=== PATIENT | male | born 1975 | race Caucasian/White ===

== ENCOUNTER 2022-02-18 07:41 | Outpatient (CLI) | payer OTHER, SELFPAY ==
--- NOTE | ~2022-02-18 | XR_ITS ---
XR chest 2V 02/18/2022 08:13 Indication: Dyspnea Procedure: PA and lateral views of the chest Comparison: No prior studies for comparison. Findings: Borderline heart size. Mild interstitial edema. Small right pleural effusion. No pneumothor ax. No acute osseous abnormality. Impression: 1: Borderline heart size with mild interstitial edema. Pneumonia less favored. 2: Small right pleural effusion. Reviewed, dictated and finalized at location A. Impression: 1: Borderline heart size with mild interstitial edema. Pneumonia less favored. 2: Small right pleural effusion.
[2022-02-18 09:16] LABS: Basophils Absolute Auto 0.1 K/mm3 (0.0-0.1); Eosinophils Absolute Auto 0.4 K/mm3 (0-0.3); Eosinophils Percent Auto 5.2 % (0-4.4); Hematocrit 49.6 % (42.0-52.0); Immature Granulocyte Absolute 0.02 K/mm3 (0.00-0.031); Immature Granulocyte Percent A 0.3 % (0-0.5); Lymphocytes Absolute Auto 1.98 K/mm3 (0.9-3.2); Mean Corpuscular HGB Conc 30.2 g/dl (32-36); Mean Platelet Volume 9.4 fl (7.4-10.4); Monocytes Absolute Auto 0.6 K/mm3 (0.1-0.6); Monocytes Percent Auto 7.1 % (2.6-8.5); Neutrophils Absolute Auto 4.9 K/mm3 (1.3-6.7); Neutrophils Percent Auto 61.4 % (45.5-73.1); Platelet Count Result 302 k/mm3 (150-375); Red Blood Count 5.77 M/mm3 (4.6-6.20); Red Cell Distribution Width 16.3 % (11.5-14.5); White Blood Count 7.9 K/mm3 (4.5-10.0)
[2022-02-18 09:25] LABS: Hemoglobin A1C 5.9 % (<5.7)
[2022-02-18 09:28] LABS: Cholesterol 120 mg/dL (0-200); HDL Direct 21 mg/dL; Triglycerides 77 mg/dL (<150)
[2022-02-18 09:29] LABS: Alanine Aminotransferase 15 U/L (6-50); Alkaline Phosphatase 75 U/L (38-126); Anion Gap 5 mmol/L (8-16); Aspartate Amino Transferase 26 U/L (17-59); Bilirubin,Total 0.5 mg/dL (0.2-1.3); Blood Urea Nitrogen 13 mg/dL (9-20); Calcium 8.4 mg/dL (8.4-10.2); Carbon Dioxide 29 mmol/L (22-30); Chloride 105 mmol/L (98-107); Estimated Glomerular Filt Rate > 60; Glucose 110 mg/dL (65-110); Potassium 3.9 mmol/L (3.4-5.0); Sodium 139 mmol/L (137-145)
[2022-02-18 09:38] LABS: NT Pro B Type Natriuretic Pept 5140 pg/mL (5-100)
[2022-02-18 09:40] LABS: LDL Cholesterol Direct 79 mg/dL
[2022-02-18 09:46] LABS: Vitamin D 25 Hydroxy 16.8 ng/mL
== END 2022-02-18 07:42 | disposition home or self-care (01) ==
PROVIDERS: PCP Family Medicine; Visit Provider Family Medicine
DX: R06.00 Dyspnea, unspecified (principal); E55.9 Vitamin D deficiency, unspecified; Z13.220 Encounter for screening for lipoid disorders; R73.9 Hyperglycemia, unspecified; J90 Pleural effusion, not elsewhere classified; R60.9 Edema, unspecified
CPT/HCPCS: 36415; 71046; 80053; 80061; 82306; 83036; 83880; 85025

== ENCOUNTER 2022-08-06 07:36 | Outpatient (CLI) | payer OTHER, SELFPAY ==
--- NOTE | 2022-08-06 07:57 | ECHO_ITS ---
Patient Info Name: Leonides Montalvo Age: 47 years : 1975 Gender: Male Ht: 71 in Wt: 272 lbs BSA: 2.53 m2 HR: 109 bpm BP: 140 / 98 mmHg Heart Rhythm: Sinus Rhythm Technical Quality: Good Exam Date: 08/06/2022 8:03 AM Exam Location: [facility] Pulmonary Patient Status: Outpatient Admit Date: 08/06/2022 Staff Ordering Physician: Kina Enriquez DO Utility Bag Assembler: Christina Nolasco RDCS Attending Provider: Kina Enriquez DO Referring Physician: Mina FOY; Exam Type: CA echo doppler color flow Study Info Indications - sob Complete two-dimensional, color flow and Doppler transthoracic echocardiogram is performed. Summary 1. Complete two-dimensional, color flow and Doppler transthoracic echocardiogram is performed. 2. Normal left ventricular size and thickness. There is mild global hypokinesis with no focal wall motion abnormalities.. Ejection fraction is calculated to be 46% and visually is 45-50%. Grade 3 diastolic dysfunction is present. 3. The right ventricle is not well seen but the chamber appears moderately enlarged with moderate hypokinesis. 4. Right atrial chamber dimension is mildly enlarged. 5. Left atrial chamber dimension is severely enlarged. 6. The mitral valve leaflets are very heavily calcified suggestive of rheumatic mitral valve disease. There is moderate to severe mitral regurgitation. There is no significant mitral stenosis. 7. There is moderate tricuspid valve regurgitation. 8. Severe pulmonary hypertension, estimated pulmonary arterial systolic pressure is 64 mmHg. 9. Normal sinus rhythm. Left Ventricle Left ventricular chamber dimension is normal. Left ventricular systolic function is mildly reduced, estimated at 45-50%. There is no increased left ventricular wall thickness. Left ventricular septal wall motion is normal. The left ventricular diastolic function is grade III diastolic dysfunction. Global longitudinal strain is severely elevated at -11 %. Right Ventricle The right ventricle is not well seen but the chamber appears moderately enlarged with moderate hypokinesis. Right ventricular systolic function is reduced. Left Atria Left atrial chamber dimension is severely enlarged. Right Atria Right atrial chamber dimension is mildly enlarged. Aortic Valve The aortic valve is trileaflet. There is mild aortic valve sclerosis. There is no aortic valve stenosis. There is no aortic valve regurgitation. Pulmonic Valve The pulmonic valve is normal. There is no pulmonic valve stenosis. There is no pulmonic regurgitation. Mitral Valve The mitral valve has calcified leaflets, restricted anterior leaflet motion and restricted posterior leaflet motion. There is no mitral valve stenosis. There is moderate to severe mitral valve regurgitation. There is moderate mitral valve calcification. The mitral valve annulus is mildly calcified. Tricuspid Valve The tricuspid valve leaflets are normal. There is no significant tricuspid valve stenosis. There is moderate tricuspid valve regurgitation. Severe pulmonary hypertension, estimated pulmonary arterial systolic pressure is 64 mmHg. Pericardium/Pleural The pericardium appears normal. There is no pericardial effusion. Inferior Vena Cava Dilated inferior vena cava with <50% collapse upon inspiration consistent with Empty right atrial pressure, 10 mmHg. Aorta The aortic root size at the sinus of Valsalva is normal. The prox ascending aorta size is norm
== END 2022-08-06 07:37 | disposition home or self-care (01) ==
LOC: ANHCARD 07:38
PROVIDERS: PCP Family Medicine; Visit Provider Family Medicine
DX: M79.89 Other specified soft tissue disorders (principal); R06.00 Dyspnea, unspecified; I27.20 Pulmonary hypertension, unspecified; I08.1 Rheumatic disorders of both mitral and tricuspid valves
CPT/HCPCS: 93306

== ENCOUNTER 2022-08-15 08:30 | Emergency (ER) | payer OTHER, SELFPAY ==
[2022-08-15] VITALS (59 sets, daily range): BP systolic 73–152; BP diastolic 37–80; PULSE 102–121; RESP 14–32; TEMP 36.4–36.9; O2SAT 92–100
--- NOTE | ~2022-08-15 | XR_ITS ---
EXAMINATION: XR chest 2V DATE: 08/15/2022 09:36 INDICATION: Shortness of breath. Symptoms of heart failure. TECHNIQUE: AP and lateral views of the chest were obtained. COMPARISON: Chest radiograph dated 02/18/2022 FINDINGS: Cardiomediastinal silhouette within normal limits for AP technique. Pulmonary vascular congestion wit hout carol pulmonary edema. Small bilateral pleural effusions with dependent compressive atelectasis in the lower lobes. No pneumothorax. IMPRESSION: 1. Pulmonary vascular congestion but without carol pulmonary edema. 2. Small bilateral pleural effusions with dependent compressive atelectasis in the lower lobes. Reviewed, dictated and finalized at location A. ESS STEAMER TENDER
--- NOTE | ~2022-08-15 | XR_ITS ---
EXAMINATION: XR chest PICC line Exam Date/Time: 08/15/2022 16:32 SHINGLE CARRIER HISTORY: picc line placement Comparison: Same date at 9:20 AM. RESULT: Lines, tubes, and devices: New right upper extremity PICC terminating in the distal SVC. Lungs and pleura: Increasing bilateral reticular opacities and airspace disease in the right upper a nd lower lung. Mild bilateral costophrenic angle blunting. Cardiomediastinal silhouette: Stable. Other: No acute osseous or upper abdominal finding. IMPRESSION: Right upper extremity PICC, in good position. Worsening pulmonary opacities, likely representing mild interstitial and alveolar pulmonary edema. Small bilateral effusions. Infection is not excluded. Reviewed, dictated and finalized at location K. GLE CARRIER IMPRESSION: Right upper extremity PICC, in good position. Worsening pulmonary opacities, li jackson representing mild interstitial and alveolar pulmonary edema. Small bilater al effusions. Infection is not excluded.
--- NOTE | ~2022-08-15 | CT_ITS ---
EXAMINATION: CT abdomen pelvis w con DATE: 08/15/2022 10:53 INDICATION: Scrotal/perineal erythema TECHNIQUE: Computed tomography (CT) of the abdomen and pelvis was performed with 100 mL Omnipaque-350 intravenous contrast. Automated exposure control and iterative reconstruction technique were employe d. The dose-length product was 1703.11 mGy-cm. COMPARISON: None FINDINGS: Moderate-sized right and small left dependent layering pleural effusions with dependent compressive a telectasis in the bilateral lower lobes. Focal mild atelectasis/scarring is fissure with probable tin y calcified nodules in the right middle lobe likely sequela of old granulomatous disease. Heart size is normal. Mitral annular and valve calcification. No pericardial effusion. Diffuse body wall, [place] and retroperitoneal edema. Small amount of ascites scattered throughout the abdomen and pelvis. Subtle liver surface nodularity consistent with cirrhosis. Gallbladder, spleen, pancreas, right kidne y and bilateral adrenal glands are normal. 9.2 x 9.0 x 10.8 cm heterogeneously enhancing left renal m ass centered at the interpolar region consistent with renal cell carcinoma. Incidentally dilated circ umaortic left renal veins passing anterior and posterior to the aorta with no evident thrombus. Bowel s including the appendix are normal. Bladder is normal. No abscess or free intraperitoneal gas. No pa thologically enlarged abdominal or pelvic lymphadenopathy. Dense scrotal edema. No hydrocele. No soft tissue gas. Moderate disc height loss at L5-S1. Bones are otherwise unremarkable. IMPRESSION: 1. 10.8 cm heterogeneously enhancing left renal mass consistent with renal cell carcinoma. No evident metastatic disease. 2. Liver surface nodularity consistent with cirrhosis. 3. Anasarca with small left and moderate-sized right pleural effusions, small amount of ascites and d iffuse body wall, mesenteric and retroperitoneal edema and severe scrotal edema. Reviewed, dictated and finalized at location A. MONITOR IMPRESSION: 1. 10.8 cm heterogeneously enhancing left renal mass consistent with renal cell carcinoma. No evident metastatic disease. 2. Liver surface nodularity consistent with cirrhosis. 3. Anasarca with small left and moderate-sized right pleural effusions, small a mount of ascites and diffuse body wall, mesenteric and retroperitoneal edema an d severe scrotal edema.
--- NOTE | 2022-08-15 08:58 | ECG_ITS ---
Measurements Intervals [place] Rate: 117 P: 64 DE: 151 QRS: -51 QRSD: 76 T: 18 QT: 286 QTc: 399 Interpretive Statements SINUS TACHYCARDIA WITH OCCASIONAL SUPRAVENTRICULAR PREMATURE COMPLEXES CANNOT RULE OUT INFERIOR MYOCARDIAL INFARCTION, PROBABLY OLD ANTEROSEPTAL MYOCARDIAL INFARCTION, OF INDETERMINATE AGE LOW-VOLTAGE QRS IN PRECORDIAL LEADS ABNORMAL ECG NO PREVIOUS ECG AVAILABLE FOR COMPARISON Electronically Signed On 08-15-2022 16:57:27 REMANUFACTURING TECHNICIAN by Mert Trinidad M.D.
--- NOTE | 2022-08-15 09:19 | PC.NURSE ---
Patient to radiology
[2022-08-15 09:20] LABS: Basophils Absolute Auto 0.2 K/mm3 (0.0-0.1); Basophils Percent Auto 0.7 % (0.2-1.2); Eosinophils Absolute Auto 0.1 K/mm3 (0-0.3); Eosinophils Percent Auto 0.3 % (0-4.4); Hematocrit 48.6 % (42.0-52.0); Immature Granulocyte Absolute 0.26 K/mm3 (0.00-0.031); Immature Granulocyte Percent A 1.1 % (0-0.5); Lymphocytes Percent Auto 4.2 % (18.3-44.2); Mean Corpuscular HGB Conc 32.9 g/dl (32-36); Mean Corpuscular Hemoglobin 27.8 pg (26-34); Mean Corpuscular Volume 84.4 fl (80-100); Mean Platelet Volume 9.5 fl (7.4-10.4); Monocytes Absolute Auto 1.6 K/mm3 (0.1-0.6); Monocytes Percent Auto 6.7 % (2.6-8.5); Neutrophils Absolute Auto 20.7 K/mm3 (1.3-6.7); Nucleated Red Blood Cells Perc 0.1 % (0.0-0.2); Platelet Count Result 188 k/mm3 (150-375); Red Blood Count 5.76 M/mm3 (4.6-6.20); Red Cell Distribution Width 17.2 % (11.5-14.5); White Blood Count 23.8 K/mm3 (4.5-10.0)
--- NOTE | 2022-08-15 09:27 | ED.GENADULT ---
HPI - General Adult General Chief complaint: Unspecified Stated complaint: swollen scrotum, heart failure Time Seen by Provider: 08/15/22 08:49 History of Present Illness HPI narrative: Pt complains of swelling to legs, scrotum, and abdomen for a year and mild SOB. Pt has seen PCP and had echocardiogram but has not seen blueprint engineer yet. Pt denies fever or chest pain. Pt says swelling in scrotum and pain in scrotum getting worse so came to ED. Related Data Allergies Allergy/AdvReac Type Severity Reaction Status Date / Time No Known Allergies Allergy Verified 08/15/22 12:47 Review of Systems Review of Systems: All systems reviewed & are unremarkable except as noted in HPI and below PMFSH Past Medical History Medical History (Updated 08/15/22 @ 18:42 by Maria T Mishra III, DO) Broken wrist At age 11 Congestive heart failure Cyst of neck Family History Family History Grandparent Acute myocardial infarction Social History Social History Smoking packs per day: 1 Smoking cigarettes per day: 20.0 Smoking status: Current every day smoker Alcohol intake: former Substance use: current Substance use type: marijuana Other substance usage details: 1 joint/day Lack of Transportation: No Lack of Food: Often True Current Housing: I Have Housing Concerned About Future Housing: No Difficulty Paying Gas/Electric Bills: YES Difficulty Paying for Meds: No Currently Unemployed: No Education: High School Diploma/GED Difficulty w/ Childcare or Family Care: No Additional living arrangements comments: Lives with girlfriend Additional occupation/education comments: Works for a [employer] Gender identity (if verbalized by the patient): Male Sexual Orientation (if Verbalized by the Patient): Straight or Heterosexual Exam Const: General: cooperative, comfortable and no acute distress Orientation/consciousness: patient oriented x3 Limitations: no limitations HENMT: Head: normal to inspection Eyes: General: appearance normal, both eyes and all related structures Alignment and Position: alignment normal Conjunctivae: conjunctivae normal Neck: Neck: normal visual inspection, full ROM and no lymphadenopathy Chest: Chest palpation & inspection: normal inspection of the chest Resp: Effort & Inspection: normal respiratory effort Auscultation: clear to auscultation bilaterally Cardio: Rate: regular rate Rhythm: regular rhythm GI: Inspection: distended GI Palp: No abdominal tenderness Percussion: Yes dullness to percussion Auscultation: normal bowel sounds : Scrotum: scrotal swelling (significant with necrotic tissue on scrotum and perineum) diffuse Skin: General skin exam: dry skin Neuro: General: patient oriented x3 and moves all extremities Cranial nerves: Yes CN's II-XII intact bilaterally Cognition (Neuro): normal cognition Speech: normal speech Motor exam (neuro): 5/5 motor strength present throughout Extrem: General: pedal edema (significant edema to lower extremities scrotum and abdomen) Right lower extremity: edema Left lower extremity: edema Psych: Appearance: grossly normal Mental Status: mental status grossly normal Speech and movement: Normal speech and movement present Affect: normal affect Attitude: cooperative Thought process: Normal thought process present Thought content: Yes Normal thought content present Insight: Fair insight present (Psych) Judgement: Fair judgement present (Psych) Course Vital Signs Vital signs: Vital Signs Temperature 97.6 F 08/15/22 08:35 Pulse Rate 117 H 08/15/22 08:35 Respiratory Rate 14 08/15/22 08:35 Blood Pressure 91/52 L 08/15/22 08:35 Pulse Oximetry 98 08/15/22 08:35 Oxygen Delivery Room Air 08/15/22 08:35 Temperature 98.0 F 08/15/22 18:21 Pulse Rate 111 H 08/15/22 18:21 R
[2022-08-15 09:29] LABS: Alanine Aminotransferase 27 U/L (6-50); Albumin Level 2.3 g/dL (3.5-5.1); Alkaline Phosphatase 106 U/L (38-126); Anion Gap 4 mmol/L (8-16); Aspartate Amino Transferase 43 U/L (17-59); Bilirubin,Total 2.9 mg/dL (0.2-1.3); Blood Urea Nitrogen 32 mg/dL (9-20); Carbon Dioxide 27 mmol/L (22-30); Chloride 102 mmol/L (98-107); Estimated CRCL calculation 106 ml/min; Estimated Glomerular Filt Rate > 60; Glucose 130 mg/dL (65-110); Potassium 3.3 mmol/L (3.4-5.0); Sodium 133 mmol/L (137-145)
[2022-08-15 09:31] LABS: Partial Thromboplastin Time 30.5 SECONDS (22.3-36.8)
[2022-08-15 09:41] LABS: NT Pro B Type Natriuretic Pept 16200 pg/mL (5-100); Troponin I < 0.012 ng/mL (0.000-0.034)
--- NOTE | 2022-08-15 10:23 | PC.NURSE ---
EDP Mishra aware of patient's current blood pressure. No further interventions at this time.
[2022-08-15 10:59] LABS: Influenza A QL RT-PCR Negative (Negative); Influenza B QL RT-PCR Negative (Negative); RSV RNA, RT-PCR Negative (Negative); SARS-CoV-2 RNA PCR Negative
--- NOTE | 2022-08-15 11:00 | PC.NURSE ---
Assumed care of pt. at this time. Report from VIKY Portillo
[2022-08-15] MEDS: metroNIDAZOLE 500 MG/ISO 100ML 500 MG/100 ML BAG 100 MG IVPB (11:42)
--- NOTE | 2022-08-15 12:15 | PC.NURSE ---
[facility] ERP okayed RN to intiate Levophed through peripheral IV
[2022-08-15] MEDS: NOREPINEPHRINE 8 MG/D5W 250 ML 8 MG/250 ML BAG 9.38 MG IV CONT (12:28)
[2022-08-15] MEDS: SODIUM CHLORIDE 0.9% IV 1,000 ML 999 ML (12:34)
[2022-08-15 12:36] LABS: Troponin I < 0.012 ng/mL (0.000-0.034)
--- NOTE | 2022-08-15 12:45 | PC.NURSE ---
1 L NS started on pt. [facility] ICU physician.
--- NOTE | 2022-08-15 13:32 | WPDCNINT ---
Assessment and Plan Assessment and plan (1) Sepsis: Code(s): A41.9 - Sepsis, unspecified organism Status: Acute Assessment and Plan: Secondary to cellulitis with concern for necrosis. CT scan does not show any free air but the skin looks dark and dusky which could be secondary to pressure necrosis. I have discussed case with General surgery Dr. Cartagena who recommended urology consult and possible transfer to tertiary facility. We are waiting for urology consultation. If urology recommands transfer the patient will be transferred from ER otherwise will be admitted to ICU for further management I ordered blood cultures, lactic acid, UA and urine culture Patient had been started on empiric antibiotics in the form of vancomycin cefepime and Flagyl Patient will be given conservative amount of IV fluids due to overall volume overload Levophed was started in the ER which will be continued CT AP IMPRESSION: 1. 10.8 cm heterogeneously enhancing left renal mass consistent with renal cell carcinoma. No evident metastatic disease. 2. Liver surface nodularity consistent with cirrhosis. 3. Anasarca with small left and moderate-sized right pleural effusions, small amount of ascites and diffuse body wall, mesenteric and retroperitoneal edema and severe scrotal edema. (2) Shock: Code(s): R57.9 - Shock, unspecified Status: Acute Assessment and Plan: Likely multifactorial shock with component of cardiogenic and possible sepsis Patient is being given 1 L saline bolus and has been started on Levophed Not a candidate for liberal IV fluids due to overall volume overload Continue Levophed titration to maintain map May need additional vasopressors or dobutamine for ionotropic support Will perform NICOM assessment on arrival to ICU for further fluid responsiveness (3) Congestive heart failure: Code(s): I50.9 - Heart failure, unspecified Status: Acute Assessment and Plan: Patient's echo done recently showed biventricular failure, severe pulmonary hypertension, moderate TR moderate MR with heavily calcified leaflets suggestive of rheumatic mitral valve disease Patient has all the signs of right heart failure and is grossly volume overloaded He is currently hypotensive and needing vasopressors May need ionotropic support Will need diuretics but at this time blood pressure need to be stabilized Consult cardiology EKG reviewed Serial troponins are negative till now (4) Anasarca: Code(s): R60.1 - Generalized edema Status: Acute Assessment and Plan: Grossly volume overloaded with lower extremity edema, scrotal edema, ascites pleural effusion Secondary to congestive heart failure and cirrhosis Paracentesis for ascites He will need diuresis once his blood pressures stabilized May need thoracentesis May need ultrafiltration depending on his course and response (5) Ascites: Code(s): R18.8 - Other ascites Status: Acute Assessment and Plan: Will request IR for ultrasound-guided paracentesis tomorrow if patient gets admitted Will order ascitic fluid studies (6) Cirrhosis: Code(s): K74.60 - Unspecified cirrhosis of liver Status: Acute Assessment and Plan: Patient appears to have evidence of cirrhosis on his CT scan. LFTs was reviewed INR is elevated Right upper quadrant ultrasound may not be helpful at this time due to significant ascites This is likely secondary to congestion but will rule out other causes by checking viral hepatitis panel. Patient denies taking any [id number] Tylenol in significant amount Will consult GI if patient gets admitted Check ammonia (7) Cellulitis: Code(s): L03.90 - Cellulitis, unspecified Status: Acute Assessment and Plan: See above (8) Renal mass: Code(s): N28.89 - Other specified disorders of kidney and ureter Status: Acute Assessment and Plan: CT of abdomen and pelvis showe
--- NOTE | 2022-08-15 14:12 | PC.NURSE ---
spoke w/ [facility] transfer center. provided pt. triage information. states they are working on a bed for pt. at [facility]
[2022-08-15 14:13] LABS: Ammonia 17 umol/L (9-30); Lactic Acid Reflex 2.3 mmol/L (0.7-2.0)
[2022-08-15] MEDS: PHYTONADIONE 5 MG TABLET 10 MG PO (14:42)
--- NOTE | 2022-08-15 15:42 | PC.NURSE ---
pt. sister cynthia
[2022-08-15 15:53] LABS: Appearance Urine Slightly Cloudy (Clear); Bilirubin Urine 2+ (Negative); Blood Urine 2+ (Negative); Glucose Urine UA Negative (Negative); Ketones Urine Negative (Negative); Leukocyte Esterase Ur 1+ LEU/UL (Negative); Nitrate Urine Negative (Negative); Protein Urine Trace mg/dL (Negative)
[2022-08-15 16:03] LABS: Bacteria Urine Trace /hpf; Mucus Urine Rare /lpf; RBC Urine 21-50 /hpf (0-2); Squamous Epithelial Cell Urine Rare /hpf (Few); WBC Urine 31-50 /hpf
[2022-08-15 16:09] LABS: Add Urine Microscopic? YES; Color Urine Dark Yellow (Yellow)
[2022-08-15 16:57] LABS: Reflex Lactic Acid Yes or No Add Lactic
[2022-08-15 17:10] LABS: Basophils Absolute Auto 0.2 K/mm3 (0.0-0.1); Basophils Percent Auto 0.9 % (0.2-1.2); Eosinophils Percent Auto 0.2 % (0-4.4); Hematocrit 46.8 % (42.0-52.0); Hemoglobin 14.9 g/dL (14.0-18.0); Immature Granulocyte Absolute 0.25 K/mm3 (0.00-0.031); Immature Granulocyte Percent A 1.2 % (0-0.5); Lymphocytes Absolute Auto 1.09 K/mm3 (0.9-3.2); Mean Corpuscular HGB Conc 31.8 g/dl (32-36); Mean Corpuscular Hemoglobin 27.5 pg (26-34); Mean Corpuscular Volume 86.5 fl (80-100); Mean Platelet Volume 10.3 fl (7.4-10.4); Monocytes Absolute Auto 1.6 K/mm3 (0.1-0.6); Monocytes Percent Auto 7.4 % (2.6-8.5); Neutrophils Absolute Auto 18.4 K/mm3 (1.3-6.7); Neutrophils Percent Auto 85.3 % (45.5-73.1); Platelet Count Result 185 k/mm3 (150-375); Red Blood Count 5.41 M/mm3 (4.6-6.20); Red Cell Distribution Width 17.6 % (11.5-14.5); White Blood Count 21.6 K/mm3 (4.5-10.0)
[2022-08-15 17:26] LABS: Ovalocytes 1+ (NORMAL); Platelet Estimate Adequate (Adequate); Schistocytes None Seen (NORMAL)
[2022-08-15 17:58] LABS: Lactic Acid Reflex 1.6 mmol/L (0.7-2.0)
[2022-08-15 18:00] LABS: Anion Gap 2 mmol/L (8-16); Blood Urea Nitrogen 33 mg/dL (9-20); Calcium 6.8 mg/dL (8.4-10.2); Carbon Dioxide 25 mmol/L (22-30); Chloride 102 mmol/L (98-107); Estimated CRCL calculation 117 ml/min; Estimated Glomerular Filt Rate > 60; Glucose 125 mg/dL (65-110); Potassium 3.3 mmol/L (3.4-5.0); Sodium 129 mmol/L (137-145)
[2022-08-15 18:12] LABS: Troponin I < 0.012 ng/mL (0.000-0.034)
[2022-08-15 18:33] LABS: Hepatitis B Surface Antigen Negative (Negative)
[2022-08-15] MEDS: ALBUMIN HUMAN 25% 25 GM/100 ML 100 ML IVPB (18:35)
[2022-08-15 18:39] LABS: HAV RESULT Negative (Negative); Hepatitis B Core IgM Result Negative (Negative)
--- NOTE | 2022-08-15 18:40 | PC.NURSE ---
attempted to call report to [facility] [address] [place] [address] at [phone]. RN instructed to call back due to shift change
[2022-08-15 18:51] LABS: Hepatitis C Virus Antibody Negative (Negative)
--- NOTE | 2022-08-15 19:03 | PC.NURSE ---
attempted to call report, RN to call back
--- NOTE | 2022-08-15 19:54 | WPDURCON ---
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 it extends into the perineum and into the lower inhguinal regions -He has been seen by nail welter, general surgery. -Given extent of his gangrene of the scrotum and with his medical co-morbid cardaic conditions I recommend transfer to tertiary care center for multidisciplinary surgical debridement. he will need ID, general surgery, urologic and ICU care. - he has been accepted by Dr Cha at [place] (2) Septic shock: Code(s): A41.9 - Sepsis, unspecified organism; R65.21 - Severe sepsis with septic shock Status: Acute (3) Renal mass: Code(s): N28.89 - Other specified disorders of kidney and ureter Status: Acute Assessment and Plan: large left renal mass is likely Renal cell carcinoma, he will need treatment of this when his sepsis has resolved Urology Consult Note HPI Date Seen: 08/15/22 Time Seen: 15:00 Requesting Physician: Rafia Bass DO Primary Care Provider: Kina Enriquez DO Consult Narrative Narrative: Leonides Montalvo is a 47 year old male with C HF, who came to ER for worsening LE edema. he complains of scrotal pain, swelling and drainage. He had a CT in the ER which shows no free air. Denies diabetes or trauam to scrotum. CT shows large renal mass as well. Pt had been seen by general surgery prior to my evaluation and recommends transfer to tertiary care center. Pt denies hematuria or dysuria bu endorses worsening scrotal smell, drainage and discomfort for > 1 week. He was noted to have an elevated wbc, and tachycardia, low BP concern for sepsis. he was started on abx, and pressors by the nail welter. CT also shows a left renal mass 10cm, prior smoker. Review of Systems Review of Systems: All systems reviewed & are unremarkable except as noted in HPI and below (HPI) Constitutional: Constitutional: Reports body ache(s) and Reports lethargy Eyes: Eyes: Reports as per HPI and Reports no additional eye complaints ENT: Reports system reviewed and no additional complaints, except as documented Cardiovascular: Cardiovascular: Reports as per HPI and Reports pedal edema Respiratory: Respiratory: Reports no additional respiratory complaints Gastrointestinal: Gastrointestinal: Reports no additional gastrointestinal complaints Genitourinary: Genitourinary: Reports as per HPI Musculoskeletal: Musculoskeletal: Reports no additional musculoskeletal complaints, Reports myalgias and Reports stiffness Integumentary/Breasts: Skin/Breast: Reports system reviewed and no additional complaints, except as docu Neurologic: Reports system reviewed and no additional complaints, except as documented Psychiatric: Psychiatric: Reports no additional psychiatric complaints [facility] Past Medical History Medical History (Updated 08/15/22 @ 18:42 by Maria T Mishra III, DO) Broken wrist At age 11 Congestive heart failure Cyst of neck Family History Family History Grandparent Acute myocardial infarction Social History Social History Smoking packs per day: 1 Smoking cigarettes per day: 20.0 Smoking status: Current every day smoker Alcohol intake: former Substance use: current Substance use type: marijuana Other substance usage details: 1 joint/day Lack of Transportation: No Lack of Food: Often True Current Housing: I Have Housing Concerned About Future Housing: No Difficulty Paying Gas/Electric Bills: YES Difficulty Paying for Meds: No Currently Unemployed: No Education: High School Diploma/GED Difficulty w/ Childcare or Family Care: No Additional living arrangements comments: Lives with girlfriend Additional occupation/education comments: Wor
== END 2022-08-15 20:50 | disposition short-term general hospital (02) ==
LOC: ANHED 12:22 → ANHICU 21:06
PROVIDERS: Internal Medicine; Emergency Provider Emergency Medicine; PCP Family Medicine
DX: A41.9 Sepsis, unspecified organism (principal); R65.21 Severe sepsis with septic shock; L03.315 Cellulitis of perineum; N49.3 Fournier gangrene; I50.9 Heart failure, unspecified; K74.60 Unspecified cirrhosis of liver; R18.8 Other ascites; N28.89 Other specified disorders of kidney and ureter; D68.9 Coagulation defect, unspecified; Z20.822 Contact with and (suspected) exposure to COVID-19; F17.210 Nicotine dependence, cigarettes, uncomplicated; R00.0 Tachycardia, unspecified; I49.1 Atrial premature depolarization; R94.31 Abnormal electrocardiogram [ECG] [EKG]
CPT/HCPCS: 36415; 36569; 71046; 74177; 80048; 80053; 80074; 81001; 82140; 83605; 83880; 84484; 85025; 85610; 85730; 87040; 87086; 87147; 87181; 87186; 87637; 93005; 96361; 96365; 96366; 96367; 96368; 99285; A9270; C1751; J0690; J0692; J3370; J7030; P9047; Q9967